=== PATIENT | female | born 2005 | race African-American/Black ===

== ENCOUNTER 2025-06-19 15:31 | Emergency (ER) | payer OTHER ==
[~2025-06-19] VITALS: Ht 162.6 cm; Wt 70.0 kg
[2025-06-19 15:57] VITALS: O2SAT 100
[2025-06-19 17:19] LABS: CLARITY URINE TURBID (CLEAR); COLOR URINE YELLOW (YELLOW); GLUCOSE URINE NEGATIVE (NEGATIVE); KETONES URINE NEGATIVE (NEGATIVE); LEUKOCYTE ESTERASE URINE 1+ (NEGATIVE); NITRITE URINE NEGATIVE (NEGATIVE); OCCULT BLOOD URINE NEGATIVE (NEGATIVE); PH URINE 7.5 (4.5-8.0); PROTEIN URINE NEGATIVE (NEGATIVE); SPECIFIC GRAVITY URINE 1.014 (1.005-1.030); UROBILINOGEN URINE 0.2 E.U./dL (0.2-1.0)
[2025-06-19 18:17] LABS: RBC URINE 0-2 /hpf (0-2); SQUAMOUS EPITHELIAL CELL URINE 1+ /lpf (RARE/1+)
[2025-06-19 18:18] LABS: BACTERIA URINE 3+
[2025-06-19] MEDS ORDERED: CEPH500T MT (18:23)
[2025-06-19] MEDS ORDERED: PYR200 MT (18:23)
[2025-06-19] MEDS: CEPHALEXIN 250MG CAPSULE PO ONE (19:03)
[2025-06-19] MEDS: PHENAZOPYRIDINE HCL 100MG TABLET PO ONE (19:03)
[2025-06-19 19:06] VITALS: BP 125/75; PULSE 88; RESP 15; TEMP 36.7; O2SAT 100
[2025-06-22 04:07] LABS: CHLAMYDIA TRACHOMATIS NAA Positive (Negative); NEISSERIA GONORRHOEAE NAA Negative (Negative)
== END 2025-06-19 19:08 | disposition home or self-care (01) ==
LOC: ER 15:56
DX: N30.00 Acute cystitis without hematuria (principal); J45.909 Unspecified asthma, uncomplicated
CPT/HCPCS: 81003; 81025; 87210; 87491; 87591; 99283

== ENCOUNTER 2025-06-22 10:38 | Emergency (ER) | payer OTHER ==
[~2025-06-22] VITALS: Ht 162.6 cm; Wt 70.0 kg
[~2025-06-22 10:38] MED LIST: CEPH500T MT; PYR200 MT
[2025-06-22 10:40] VITALS: PULSE 104; RESP 16; O2SAT 97
[2025-06-22 10:41] VITALS: BP 115/54; TEMP 37; O2SAT 97
[2025-06-22] MEDS ORDERED: DOXY100T2 MT (10:59)
== END 2025-06-22 11:11 | disposition home or self-care (01) ==
LOC: ER 10:38
DX: A56.09 Other chlamydial infection of lower genitourinary tract (principal); J45.909 Unspecified asthma, uncomplicated; N39.0 Urinary tract infection, site not specified
CPT/HCPCS: 81025; 99283